=== PATIENT | female | born 1995 | race Caucasian/White ===

== ENCOUNTER 2018-10-29 03:32 | Emergency (ER) | payer MEDICAID ==
[~2018-10-29] VITALS: Ht 157.5 cm; Wt 54.5 kg
[2018-10-29] MEDS ORDERED: HYDROCODONE/ACETAMINOPHEN 5/325MG TABLET PO ONE (04:15)
[2018-10-29 07:32] VITALS: BP 97/67
== END 2018-10-29 07:53 | disposition home or self-care (01) ==
LOC: ER 05:31
DX: R51 Headache (principal); Y04.0XXA Assault by unarmed brawl or fight, initial encounter; Y93.89 Activity, other specified; Y92.89 Other specified places as the place of occurrence of the external cause; Y99.8 Other external cause status
CPT/HCPCS: 70110; 81025; 99283